=== PATIENT | female | born 1950 | race Caucasian/White ===

== ENCOUNTER → 2016-10-25 | Outpatient (CLI) | payer OTHER ==
[~2016-10-25] MED LIST: ALEVE220 M2 PO; CLARITIN10 M3 PO; CRESTOR40 MG PO; Claritin,Alavart PO; LASIX20 MG PO; LO-DOSE ASPIRIN81 M2 PO; LOSARTAN POTASS25 MG PO; MAGNESIUM OXIDE PO; TYLENOL EXTRA500 MG PO; VIVELLE-DOT,0.025 MG TD
[2016-10-25 08:32] LABS: HEMATOCRIT 41.3 % (36.0-46.0); MCHC 33.7 G/DL (30.0-36.0); MCV 86.2 FL (83-99); MEAN PLAT.VOLUME 8.9 uM^3 (9.5-12.4); PLATELET COUNT 304 K/uL (156-360); RBC DIS.WIDTH-CV 12.6 % (11.8-14.6); RBC DIS.WIDTH-SD 38.8 % (39-53); RED BLOOD COUNT 4.79 M/uL (3.80-5.20); WHITE BLOOD COUNT 5.7 K/uL (4.1-10.2)
[2016-10-25 08:42] LABS: PROTHROMBIN TIME 10.6 (9.2-11.2); PTT 27.8 (25-32)
== END | disposition home or self-care (01) ==
LOC: OPR 07:42 → EDSTATUS 08:00
PROVIDERS: Radiology Diagnostic Radiology
PROC: 0TB13ZX Excision of Left Kidney, Percutaneous Approach, Diagnostic (ICD-10-PCS; principal; 2016-10-25)
DX: R80.9 Proteinuria, unspecified (principal); N04.9 Nephrotic syndrome with unspecified morphologic changes; N18.2 Chronic kidney disease, stage 2 (mild); Z88.1 Allergy status to other antibiotic agents
CPT/HCPCS: 77012; 85027; 85610; 85730; 88305 90; 88313 90; 88346 90; 88348 90; J3010